=== PATIENT | female | born 1955 | race Caucasian/White ===

== ENCOUNTER 2019-12-30 08:46 | Emergency (ER) | payer MEDICARE, SELFPAY ==
--- NOTE | ~2019-12-30 | CT_ITS ---
EXAMINATION: CT brain wo con DATE: 12/30/2019 09:59 INDICATION: Fall, striking back of head. Occipital contusion and laceration. TECHNIQUE: Computed tomography (CT) of the head was performed without intravenous contrast. The mA wa s adjusted according to patient size. Iterative reconstruction technique was employed. Exam dose: 60 5.33 mGy-cm total exam DLP. COMPARISON: None FINDINGS: No intracranial mass lesion or hemorrhage or cerebrovascular accident is evident. Normal ve ntricular size. No midline shift or mass effect. No subdural or epidural hematoma. No fracture or bone destruction of the cranial vault. There is a small fluid level in the right maxillary sinus. There is some soft tissue thickening of th e ethmoid air cells, right greater than left. The left frontal and sphenoid sinuses are not developed . The paranasal sinuses are otherwise unremarkable. IMPRESSION: No skull fracture or acute intracranial finding Right maxillary sinus fluid level Reviewed, dictated and finalized at [facility]. Reviewed, dictated and finalized at [facility]. Y CONTROL OPERATOR
[2019-12-30 09:12] VITALS: BP 125/71; PULSE 73; RESP 16; TEMP 35.9; O2SAT 98
--- NOTE | 2019-12-30 09:29 | ECG_ITS ---
Measurements Intervals [place] Rate: 72 P: 69 [place]: 126 QRS: 57 QRSD: 89 T: 49 QT: 375 QTc: 411 Interpretive Statements SINUS RHYTHM NORMAL ECG Electronically Signed On 12-30-2019 11:26:32 INDEP[employer]ENT LIVING ADVISOR by Hugo Keller D.O.
--- NOTE | 2019-12-30 09:40 | ED.FALL ---
HPI - Fall General Chief Complaint: Fall Stated Complaint: passed out Source: patient and other (son) Mode of arrival: wheelchair Limitations: no limitations History of Present Illness HPI Narrative: Just after getting out of bed, while walking, pt. developed nausea, felt hot, just didn't feel right. She felt things close in around her then next remembers hearing a bang followed by waking up with blood on floor, having an occipital headache and continued nausea. Crawled to b.r. where she had dry heaves. No hx of chest pain, palpitations, SOB, sweating or syncope. She remembers incidents before and after her syncopal episode. No hx of sz disorder. Pt denies post syncope confusion, bit lip or cheek, incontinence. Has had cold symptoms x 2 days with nasal congestion and cough. Onset (ago): minute(s) (45) Fall from: standing Fall witnessed: no Place fall occurred: home Loss of consciousness: yes Length of LOC: minutes(s) (son estimates no more than 3 - 4 min . based on text and phone call) Symptoms prior to fall: lightheadedness Location of injury: head Severity: mild Quality: dull Associated symptoms (after fall): headache (#5/10) Related Data Home Medications Medication Instructions Recorded Confirmed aspirin 81 mg PO DAILY 12/30/19 12/30/19 omeprazole 20 mg PO DAILY 12/30/19 12/30/19 Allergies Allergy/AdvReac Type Severity Reaction Status Date / Time No Known Allergies Allergy Verified 12/30/19 09:23 Review of Systems Constitutional: Constitutional: Denies fever(s) Eyes: Comments: photophobia with migraine headache yesterday, none today. NO visual disturbances. ENT: Denies vertigo, Denies dizziness and Denies sore throat Cardiovascular: Cardiovascular: Denies chest pain, Denies rapid heart rate and Denies radiating jaw, neck or arm pain Comments: occasionally feels a skipped heart beat, none today. Respiratory: Respiratory: Denies chest congestion, Reports cough and Denies dyspnea Gastrointestinal: Gastrointestinal: Denies diarrhea Genitourinary: Genitourinary: Denies dysuria and Denies urinary incontinence Musculoskeletal: Musculoskeletal: Denies no additional musculoskeletal complaints and Reports back pain Comments: muscle soreness which she had before she fell, onset 1 - 2 days ago. Integumentary/Breasts: Skin/Breast: Denies rash Neurologic: Denies focal weakness and Denies numbness Endocrine: Endocrine: Reports polydipsia Hematologic/Lymphatic: Hematologic/Lymphatic: Denies easy bleeding Allergic/Immunologic: Allergic/Immunologic: Denies wheezing [facility] Past Medical History Medical History (Updated 12/30/19 @ 23:12 by Israel Philippe MD) GERD (gastroesophageal reflux disease) Migraine Surgical History Surgical History (Updated 12/30/19 @ 23:15 by Israel Philippe MD) Cataract extraction status of left eye Cataract extraction status of right eye Social History Social History (Updated 12/30/19 @ 09:57 by Israel Philippe MD) Smoking status: Never smoker Alcohol intake: never Gender identity (if verbalized by the patient): Female Exam Const: General: no acute distress Orientation/consciousness: patient oriented x3 HENMT: Head: normal to inspection, hematoma right occipital 1.5 cm and laceration Head images: 1. laceration Face and sinus: normal facial exam Mouth: Yes moist mucous membranes Eyes: Pupils: Equal, round and reactive pupils present EOM: EOMs intact bilaterally Neck: Neck: normal visual inspection and no lymphadenopathy Other: supple; no pain with movement; no spinous process tenderness. Chest: Chest palpation & inspection: normal inspection of the chest Resp: Effort & Inspection: normal respiratory effort Auscultation: clear to auscultation bilaterally Cardio: Rate: regular rate Rhythm: regular rhythm GI: Inspection: non-distended Back/Spine/Pelvis: Back: no CVA tenderness Skin: Rashes: no rashes Neuro: General: patient orient
[2019-12-30] MEDS: TETANUS,DIPHTHERIA,AC PERTUSSIS ADULT 0.5 ML (ADACEL) IM (10:03)
[2019-12-30] MEDS: SODIUM CHLORIDE 0.9% IV 1,000 ML 999 ML IV CONT (10:06)
[2019-12-30 10:07] LABS: Hematocrit 42.2 % (35.0-42.0); Hemoglobin 13.8 g/dL (11.7-13.8); Mean Corpuscular HGB Conc 32.7 g/dL (32.0-36.0); Mean Corpuscular Hemoglobin 28.3 pg (27.0-31.0); Mean Corpuscular Volume 86.7 fL (78.0-102.0); Mean Platelet Volume 10.4 fl (9.2-11.8); Platelet Count Result 269 K/mm3 (150-420); Red Blood Count 4.87 M/mm3 (4.20-5.40); Red Cell Distribution Width 13.4 % (11.6-14.4); White Blood Count 8.4 K/mm3 (4.8-10.8)
[2019-12-30 10:12] LABS: Appearance Urine Clear (Clear); Bilirubin Urine Negative (Negative); Color Urine Yellow (Yellow); Glucose Urine UA Negative (Negative); Ketones Urine 1+ (Negative); Leukocyte Esterase Ur 1+ (Negative); Nitrate Urine Negative (Negative); Protein Urine Trace (Negative); Urobilinogen Urine 0.2 mg/dL (0.2-1.0); pH Urine 7.5 (5.0-8.0)
[2019-12-30 10:17] LABS: Add Urine Microscopic? YES; Blood Urine Trace (Negative); RBC Urine 0-2 /hpf (0-2)
[2019-12-30 10:18] LABS: Bacteria Urine Trace /hpf; Squamous Epithelial Cell Urine Few /hpf (Few)
[2019-12-30 10:25] LABS: Influenza Control Valid (Valid)
[2019-12-30 10:26] LABS: Anion Gap 17.7 mmol/L (7-16); Blood Urea Nitrogen 10 mg/dL (7-18); Calcium 9.6 mg/dL (8.5-10.1); Carbon Dioxide 26 mmol/L (21-32); Chloride 101 mmol/L (98-108); Estimated CRCL calculation 50 ml/min; Estimated Glomerular Filt Rate 55; Glucose 109 mg/dL (70-99); Osmolality Calculated 292 mOsm/kg (285-295); Potassium 3.7 mmol/L (3.5-5.1); Sodium 141 mmol/L (136-145)
[2019-12-30 10:30] LABS: Troponin I < 0.02 ng/mL (0.00-0.056)
[2019-12-30 10:58] VITALS: BP 125/71; BP 136/78; PULSE 83; PULSE 92
[2019-12-30 11:33] VITALS: BP 142/80; PULSE 80; O2SAT 99
--- NOTE | 2020-01-05 14:06 | PC.NURSE ---
N.SALINE 1000 ML INFUSSION COMPLETED @ 1055
== END 2019-12-30 11:41 | disposition home or self-care (01) ==
PROVIDERS: Emergency Provider Family Medicine
DX: S01.01XA Laceration without foreign body of scalp, initial encounter (principal); R55 Syncope and collapse; K21.9 Gastro-esophageal reflux disease without esophagitis; W18.30XA Fall on same level, unspecified, initial encounter
CPT/HCPCS: 12001; 36415; 70450; 80048; 81001; 84484; 85027; 87804; 90471; 90715; 93005; 96360; 99282; 99284; J7030

== ENCOUNTER 2025-03-26 12:00 | Outpatient (CLI) | payer MEDICARE, SELFPAY ==
[2025-03-26 12:26] LABS: Add Urine Microscopic? YES; Appearance Urine Clear (Clear); Bilirubin Urine Negative (Negative); Blood Urine Trace-intact (Negative); Color Urine Light Yellow (Yellow); Glucose Urine UA Negative (Negative); Ketones Urine Negative (Negative); Leukocyte Esterase Ur Trace LEU/UL (Negative); Nitrate Urine Negative (Negative); Protein Urine Negative (Negative); Urobilinogen Urine 0.2 mg/dL (0.2-1.0); pH Urine 5.5 (5.0-8.0)
--- OUTSIDE RECORDS SUMMARY | 2025-03-26 12:27 | XMS_ITS | Continuity of Care Document ---
Author Organization [facility] Address [address] [place] [address] Phone Care Team Providers Care Manual Plate Filler Name Role Phone Yuri Sevilla MD Unavailable Unavailable Allergies, Adverse Reactions, Alerts Substance Reaction Status Criticality No Known Allergies Active No Inform ation Medications Medication Instructions Dosage Effective Dates (start - stop) Status Comments omeprazole 20 mg capsule,delayed release take 1 capsule by oral route every day before a meal 20 MG - Active B-12 Compliance 1,000 mcg/mL injection kit inject 1 milliliter by intramuscular route every month - Active multivitamin tablet take 1 tablet by ora l route every day with food - Active Calcium 600 600 mg (1,500 mg) tablet - Active Aspirin Low Dose 81 mg tablet,delayed release take 1 tablet by oral route every day 81 MG - Active Procedures Procedure Date No Charge Refraction Visual Field Examination(s) Corneal Pachymetry SCODI, Posterior Segment Office/outpatient Visit, [facility] Advance Directives Directive Yes / No Effective Date File Name No Information Encounters Encounter Description Practice Location Reason(s) For Visit Diagnoses Date Provider Providers Copied on Encounter Office/outpa tient Visit, [facility], [address] [place] [address] [address], [place], [place], [id number], [place] tel:[phone] [place] Professional Glaucoma evaluation (chief complaint) Abnormally thick cornea determined by ultrasound pachymetryCo mbined forms of age-related cataract of both eyesOcular hypertension , bilateral May-2 3-201 7 Roel Welch. [address], [place], [place], [id number], [place]. tel:[phone] Referring Provider: Pattie Morris OD, [facility] [address] [facility], [place], [address]. tel:[phone] [facility], [address], [place], [place], [id number], [place] tel:[phone] [place] Professional No Information Chaya Melendez. [address], [address], [place], [place], [id number], [place]. tel:[phone] Family History Family Member Type Diagnosis Age At Onset No Information Payers Payer name Insurance type Covered republican ID Authoriza harrison(s) RUST [id number] Social History Type Description Quantity Date Captured Comments Alcohol Use Details Caffeine Use Details coffee 3 cups per day Tobacco Use Status No Information Smoking Status Never smoker Non-Smoking Tobacco Use Details : No Details Available : No Details Available Sex Female Chief Complaint And Reason For Visit From encounter dated '04/12/2017 09:30'. Glaucoma evaluation (chief complaint). Description: The 62 year old female presents for Glaucoma evaluation in the right eye and left eye. Pt reffered by Dr. Pattie Morris at [facility] for Glc eval. Pt reports she has no ocular Hx, but does have a Hx of migraines. Pt reports no family Hx of glaucoma. Pt reports no pain, irritation, or discomfort today OU. Pt reports she doesn't use any gtts. Pt reports no flashes of light. Pt reports she does have floaters, OU, x many yrs, with no change. Pt reports no change in VA, OU. Reason For Referral Reason For Referral No Information History Of Present Illness Encounter Date Complaint History Of Prese nt Illness Glaucoma evaluation The 62 year old female presents for Glaucoma evaluation in the right eye and left eye. Pt reffered by Dr. Pattie Morris at [facility] for Glc eval. Pt reports she has no ocular Hx, but does have a Hx of migraines. Pt reports no family Hx of glaucoma. Pt reports no pain, irritation, or discomfort today OU. Pt reports she doesn't use any gtts. Pt reports no flashes of light. Pt reports she does have floaters, OU, x many yrs, with no change. Pt reports no change in VA, OU. Functional Status Date Functional Assessmen t No Information Instructions Date Instruction Additional Infor ernestine Impression/Plan - Ca taract OU:- Visually significant cataract OD>OS.- Patient recently got new glasses.- Patient doing well with her vision.- Patient wishes to wait on CE at this time.Ocular Hypertension OU:- Baseline HVF and OCT are normal OU.- IOP was elevated at outside office.- IOP within normal limits today.- Slightly thick pachymetry OS>OD.- There is no known family history of glaucoma.- Explained her risk for developing glaucoma is low.- Observation is recommended at this time.- Recommend patient return in 1 year for DFE and OCT ON or sooner with problems. 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
--- OUTSIDE RECORDS SUMMARY | 2025-03-26 12:27 | XMS_ITS | Encounter Summary ---
Author Organization [facility] Address [facility] [place] [address] Care Team Providers Care Forensic Manager Name Role Phone William Silverman DO Primary Care Provider [phone] Encounter Details Date Type Department Care Team (Late st Contact Info) Description 04/28/2019 Abstract [facility] CONVERSION [address] [place] [address] , Generic Conversion, Social History Tobacco Use Types Packs/Day Years Used Date Smoking Tobacco: Never Assessed Comments Unknown Sex and Gender Information Value Date Recorded Sex Assigned at Female 03/03/2025 10:14 AM CDT Legal Sex Female 5:51 PM [employer]OX [employer]ER Gender Identity Not on file Sexual Orientation Not on file documented as of this encounter Plan of Treatment Not on file documented as of this encounter Visit Diagnoses Not on filedocumented in this encounter Additional Health Concerns Infection Onset Date Last Indicated Resolved Time COVID-19 Rule Out 03/03/2025 03/03/2025 03/03/2025 10:14 AM CDT Respiratory Rule-Out 03/03/2025 03/03/2025 025 10:14 AM CDT documented as of this encounter Care Teams Forensic Manager Relationship Specialty Start Date End Date William Silverman DO [address] [place] [phone] PCP - General FAMILY PRACTICE 03/03/25 documented as of this encounter
--- OUTSIDE RECORDS SUMMARY | 2025-03-26 12:27 | XMS_ITS | Clinical Summary ---
Author Organization [facility] Address [facility] [place] [address] Care Team Providers Care Agent Producer Name Role Phone William Silverman Lluvia NOE Primary Care Provider [phone] Allergies No known active allergies Medications No known medications Active Problems No known active problems Encounters Date Type Department Care Team Description 03/03/2025 9:28 AM CDT - 03/03/2025 1:15 PM CDT [facility] [address] [facility] [place] [address] Alyce Bello DO Chest Pain Discharge Disposition: Home or Self Care (Routine Discharge) 03/03/2025 Travel from Last 3 Months Social History Tobacco Use Types Packs/Day Years Used Date Smoking Tobacco: Never Smokeless Tobacco: Never Tobacco Cessation:Counseling Given: Not Answered Alcohol Use Standard Drinks/Week Comments Never 0 (1 standard drink = 0.6 oz pur e alcohol) Comments No Sex and Gender Information Value Date Recorded Sex Assigned at Female 03/03/2025 10:14 AM CDT 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 Gender Identity Not on file Sexual Orientation Not on file Last Filed Vital Signs Vital Sign Reading Time Taken Comments Blood Pressure 121/85 03/03/2025 1:01 PM CDT Pulse 86 03/03/2025 1:01 PM CDT Temperature 37.2 C (98.9 F) 03/03/2025 9:48 AM CDT Respiratory Rate 18 03/03/2025 12:30 PM CDT Oxygen Saturation 100% 03/03/2025 1:01 PM CDT Inhaled Oxygen Concentration - - Weight 74.8 kg (165 lb) 03/03/2025 9:48 AM CDT Height 162.6 cm (5' 4 ) 03/03/2025 9:48 AM CDT Body Mass Index 28.32 03/03/2025 9:48 AM CDT Plan of Treatment Health Maintenance Due Date Last Done Comments Colorectal Cancer Screening Colonoscopy (10 Years) 1955 Hepatitis C 1971 Mammogram Screening 1993 Zoster Vaccines (1 of 2) 2003 Annual Medicare Wellness Visit 2018 Dexa Scan (General) 2018 Pneumococcal Vaccine: 50+ Years (2 of 2 - PPSV23) 09/25/2021 09/25/2020 COVID-19 Vaccine (3 - 2023-2 5 season) 2024 01/14/2021, 12/19/2020 RSV Immunization or 60+ Years (1 - 1-dose 75+ series) 01/27/2028 DTaP, Tdap and Td Vaccines ( 2 - Td or Tdap) 12/30/2029 12/30/2019 Meningococcal B Vaccine Aged Out No l onger eligible based on patient's age to complete this topic Meningococcal Vaccine Aged Out No frandy taz eligible based on patient's age to complete this topic RSV Immunizations Under 20 Months Aged Out No longer eligible b ased on patient's age to complete this topic Procedures Procedure Name Priority Date/Time Associated Diagnosis Comments TROPONIN, QUANT STAT 03/03/2025 11:37 AM CDT XR CHEST PA+LAT STAT 03/03/2025 10:38 AM CDT INFLUENZA A & B STAT 03/03/2025 9:46 AM CDT CORONAVIRUS (COVID-19) ANTIGEN STAT 03/03/2025 9:46 AM CDT LACTIC ACID W REFLEX (SEPSIS) STAT 03/03/2025 9:43 AM CDT TROPONIN, QUANT STAT 03/03/2025 9:43 AM CDT PRO-BRAIN NATRIURETIC PEPTIDE STAT 03/03/2025 9:43 AM CDT COMPREHENSIVE METABOLIC PANEL STAT 03/03/2025 9:43 AM CDT CBC W/DIFF AUTOMATED STAT 03/03/2025 9:43 AM CDT ECG 12-LEAD Routine 03/03/2025 9:32 AM CDT from Last 3 Months Results * TROPONIN, QUANT (03/03/2025 11:37 AM CDT) Only the most recent of2 resultswithin the time period is included. TROPONIN I HIGH SENSITIVITY 4 0 - 51 ng/L 03/03/2025 12:01 PM CDT [facility] 03/03/2025 11:3 7 AM CDT Alyce Bello DO LABORATORY Final Result Performing Organization Address City/State/[facility] Co de Phone Number [facility] [address] [place] [address], * XR CHEST PA+LAT (03/03/2025 10:38 AM CDT) Anatomical Region Laterality Modality Chest Radiographic Chanelle ging 03/03/2025 10:3 8 AM CDT Impressions 03/03/2025 10:38 AM CDT IMPRESSION: No acute findings Ordered By: ALYCE BELLO Interpreted By: Yonatan Olivier MD, 03/03/2025 10:38 AM Narrative 03/03/2025 10:38 AM CDT [address] [place] [address] 2 VIEWS OF THE CHEST Clinical history: Chest pain Comparison: None 2 views of the chest demonstrate the cardiac silhouette to be normal in size and appearance. The pulmonary vessels appear normal. The Lungs are clear. No consolidations or effusions are seen. Procedure Note Yonatan Olivier MD - 03/03/[address] [place] [address] 2 VIEWS OF THE CHEST Clinical history: Chest pain Comparison: None 2 views of the chest demonstrate the cardiac silhouette to be normal insize and appearance. The pulmonary vessels appear normal. The Lungs areclear. No consolidations or effusions are seen. IMPRESSION: No acute findings Ordered By: ALYCE BELLO Interpreted By: Yonatan Olivier MD, 03/03/2025 10:38 AM Alyce Bello DO GENERAL IMAGING Final Result * CORONAVIRUS (COVID-19) ANTIGEN (03/03/2025 9:46 AM CDT) CORONAVIRUS ANTIGEN IA NEGATIVE NEGATIVE 03/03/2025 10:14 AM CDT [facility] Comment: NEGATIVE RESULTS DO NOT RULE OUT SARS-COV-2 INFECTION AND SHOULD NOT BE USED THE SOLE BASIS FOR TREATMENT OR PATIENT MANAGEMENT DECISIONS, INCLUDING INFECTION CONTROL DECISIONS. NEGATIVE RESULTS SHOULD BE CONSIDERED IN THE CONTEXT OF A PATIENT'S RECENT EXPOSURES, HISTORY AND THE PRESENCE OF CLINICAL SIGNS AND SYMPTOMS CONSISTENT WITH COVID 19. THIS TEST HAS BEEN AUTHORIZED BY THE FDA UNDER AN EMERGENCY USE AUTHORIZATION (EUA) FOR USE BY AUTHORIZED LABORATORIES. SPECIMEN TYPE NASAL 03/03/2025 9:46 AM CDT [facility] NASAL NASAL STRUCTURE / Unknown 03/03/2025 9:46 AM CDT us Alyce Bello DO MICROBIOLOGY - GENERAL ORDERABLE S Final Result [facility] [place] [address], * INFLUENZA A & B (03/03/2025 9:46 AM CDT) SPECIMEN TYPE (INFLUENZA) NASAL 03/03/2025 9:46 AM CDT [facility] INFLUENZA A NEGATIVE NEGATIVE 03/03/2025 10:14 AM CDT [facility] INFLUENZA B NEGATIVE NEGATIVE 03/03/2025 10:14 AM CDT [facility] Comment: A NEGATIVE RESULT DOES NOT EXCLUDE INFLUENZA VIRUS INFECTION. IF INFLUENZA IS CIRCULATING IN YOUR COMMUNITY, A DIAGNOSIS OF INFLUENZA SHOULD BE CONSIDERED BASED ON A PATIENT'S CLINICAL PRESENTATION AND EMPIRIC ANTIVIRAL TREATMENT SHOULD BE CONSIDERED IF INDICATED. NASAL STRUCTURE / Unknown 03/03/2025 9:46 AM CDT us Alyce Bello DO MICROBIOLOGY - GENERAL ORDERABLE S Final Result Performing Organization Address City/[facility]/ZIP Co de Phone Number [facility] [address] [place] [address], * LACTIC ACID W REFLEX (SEPSIS) (03/03/2025 9:43 AM CDT) LACTIC ACID VENOUS 0.8 0.4 - 2.0 MMOL/L 03/03/2025 10:21 AM CDT [facility] 03/03/2025 9:43 AM CDT us Alyce Bello DO LABORATORY Final Result Performing Organization Address [facility]/ZIP Co de Phone Number [facility] [address] [place] [address], * (ABNORMAL) PRO-BRAIN NATRIURETIC PEPTIDE (03/03/2025 9:43 AM CDT) PRO-B TYPE NATRIURETIC PEPTIDE 381(H) <125 PG/ML 03/03/2025 10:25 AM CDT [facility] Comment: CUT POINTS ESTABLISHED BY INTERNATIONAL COLLABORATIVE ON NT PROBNP (ICON) STUDY (2006). AGE INDEPENDENT: <300 PG/ML HAS A 99% NEGATIVE PREDICTIVE VALUE FOR EXCLUDING ACUTE CHF <50 YEARS: >450 PG/ML IS CONSISTENT WITH ACUTE CHF 50-75 YEARS: >900 PG/ML IS CONSISTENT WITH ACUTE CHF >75 YEARS: >1800 PG/ML IS CONSISTENT WITH ACUTE CHF IN PATIENTS WITH RENAL INSUFFICIENCY (GFR <60), >1200 PG/ML YIELDS A DIAGNOSTIC SENSITIVITY AND SPECIFICITY OF 89% AND 72% FOR ACUTE CHF. 03/03/2025 9:43 AM CDT us Alyce Bello DO LABORATORY Final Result [facility] [address] [place] [address], * (ABNORMAL) COMPREHENSIVE METABOLIC PANEL (03/03/2025 9:43 AM CDT) SODIUM S/P/B 138 136 - 145 MMOL/L 03/03/2025 10:25 AM CDT [facility] POTASSIUM S/P/B 3.8 3.5 - 5.1 MMOL/L 03/03/2025 10:25 AM CDT [facility] CHLORIDE S/P/B 102 98 - 107 MMOL/L 03/03/2025 10:25 AM CDT [facility] CO2 27.8 21.0 - 32.0 MMOL/L 03/03/2025 10:25 AM CDT [facility] GLUCOSE 114(H) 70 - 99 MG/DL 03/03/2025 10:25 AM CDT [facility] Comment: FASTING GLUCOSE 100 TO 125 MG/DL IS CONSISTENT WITH IMPAIRED FASTING GLUCOSE. FASTING GLUCOSE >125 MG/DL IS CONSISTENT WITH DIABETES. RANDOM GLUCOSE >200 MG/DL WITH HYPERGLYCEMIC SYMPTOMS IS CONSISTENT WITH DIABETES. PER ADA GUIDELINES BUN 8 6 - 24 MG/DL 03/03/2025 10:25 AM CDT [facility] CREATININE S/P/B 0.68 0.55 - 1.02 MG/DL 03/03/2025 10:25 AM CDT [facility] CALCIUM S/P/B 9.0 8.4 - 10.5 MG/DL 03/03/2025 10:25 AM CDT [facility] BILIRUBIN TOTAL S/P/B 1.0 0.2 - 1.0 MG/DL 03/03/2025 10:25 AM CDT [facility] Comment: THIS ASSAY IS NOT RECOMMENDED FOR PATIENTS UNDERGOING TREATMENT WITH ELTROMBOPAG DUE TO THE POTENTIAL FOR FALSELY ELEVATED RESULTS. ALKALINE PHOSPHATASE S/P/B 100 55 - 142 U/L 03/03/2025 10:25 AM CDT [facility] AST 19 15 - 37 U/L 03/03/2025 10:25 AM CDT [facility] ALT 28 14 - 59 U/L 03/03/2025 10:25 AM CDT [facility] TOTAL PROTEIN S/P/B 7.4 6.4 - 8.2 G/DL 03/03/2025 10:25 AM CDT [facility] ALBUMIN S/P/B 3.8 3.4 - 5.0 G/DL 03/03/2025 10:25 AM T [facility] ANION GAP 8.2 5.0 - 15.0 MMOL/L 03/03/2025 10:25 AM T [facility] OSMOLALITY (CALC) 285 MOSM/KG 025 10:25 AM T [facility] Comment:REFERENCE RANGE NOT ESTABLISHED GFR ESTIMATE >90 >89 ML/MIN/1. 73 M2 03/03/2025 10:25 AM T [facility] GFR NOTES GFR REFERENCE S: 03/03/2025 10:25 AM T [facility] Comment: THE ESTIMATED GFR IS CALCULATED USING THE 2020 CKD-EPI EQUATION. THE FOLLOWING CATEGORIES FOR GRADING RENAL FUNCTION ARE RECOMMENDED BY THE INTERNATIONAL SOCIETY OF NEPHROLOGY (KDIGO 2012 CLINICAL PRACTICE GUIDELINE). G1,NORMAL OR HIGH: >89 ml/min/1.73 m2 G2,MILDLY DECREASED: 60-89 ml/min/1.73 m2 G3A,MILDLY TO MODERATELY DECREASED: 45-59 ml/min/1.73 m2 G3B,MODERATELY TO SEVERELY DECREASED: 30-44 ml/min/1.73 m2 G4,SEVERELY DECREASED: 15-29 ml/min/1.73 m2 G5,KIDNEY FAILURE: <15 ml/min/1.73 m2 03/03/2025 9:43 AM CDT us Alyce Bello DO LABORATORY Final Result [facility] [address] [place] [address], * (ABNORMAL) CBC W/DIFF AUTOMATED (03/03/2025 9:43 AM CDT) WBC 5.90 4.00 - 10.80 x10'3/uL 03/03/2025 9:53 AM CDT [facility] RBC 4.55 4.10 - 5.40 x10'6/uL 03/03/2025 9:53 AM CDT [facility] HGB 12.4 12.0 - 16.0 G/DL 03/03/2025 9:53 AM CDT [facility] HCT 38.6 36.0 - 47.0 % 03/03/2025 9:53 AM CDT [facility] MCV 84.8 78.0 - 100.0 FL 03/03/2025 9:53 AM CDT [facility] MCH 27.3 27.0 - 31.0 PG 03/03/2025 9:53 AM CDT [facility] MCHC 32.1(L) 33.0 - 36.0 G/DL 03/03/2025 9:53 AM CDT [facility] RDW 13.9 11.5 - 14.5 % 03/03/2025 9:53 AM CDT [facility] PLT 243 150 - 350 x10'3/uL 03/03/2025 9:53 AM CDT [facility] MPV 10.0 7.4 - 10.4 FL 03/03/2025 9:53 AM CDT [facility] CBC COMMENT NORMAL REFERENCE RANGE NOT ESTABLISHED FOR THE PROPORTIONAL LEUKOCYTE DIFFERENTIAL. 03/03/2025 9:53 AM CDT [facility] NEUTROPHILS % 80.0 % 03/03/2025 9:53 AM CDT [facility] LYMPHOCYTES % 12.0 % 03/03/2025 9:53 AM CDT [facility] MONOCYTES % 5.3 % 03/03/2025 9:53 AM CDT [facility] EOSINOPHILS % 2.2 % 03/03/2025 9:53 AM CDT [facility] BASOPHILS % 0.3 % 03/03/2025 9:53 AM CDT [facility] IMMATURE GRANS % 0.2 % 03/03/20 9:53 AM CDT [facility] NRBC % 0.0 % 03/03/2025 9:53 AM CDT [facility] ABS. NEUTROPHILS 4.72 1.60 - 8.30 x10'3/uL 03/03/2025 9:53 AM CDT [facility] ABS. LYMPHOCYTES 0.71(L) 0.80 - 4.70 x10'3/uL 03/03/2025 9:53 AM CDT [facility] ABS. MONOCYTES 0.31 0.00 - 1.50 x10'3/uL 03/03/2025 9:53 AM CDT [facility] ABS. EOSINOPHILS 0.13 0.00 - 0.40 x10'3/uL 03/03/2025 9:53 AM CDT [facility] ABS. BASOPHILS 0.02 0.00 - 0.20 x10'3/uL 03/03/2025 9:53 AM CDT [facility] ABS. IMMATURE GRANULOCYTES 0.01 0.00 - 0.03 x10'3/uL 03/03/2025 9:53 AM CDT [facility] ABS. NUCLEATED RBC'S 0.00 0.00 - 0.01 x10'3/uL 03/03/2025 9:53 AM CDT [facility] 03/03/2025 9:43 AM CDT us Alyce Bello DO LABORATORY Final Result [facility] [address] [place] [address], * ECG 12 lead (03/03/2025 9:32 AM CDT) 03/03/2025 9:32 AM CDT Narrative [facility] - 03/03/2025 3:[address] PM [address] [place] [address] Test Date: 2025-03-03 Pat Name: KAELA BENITO Department: 3 Room: EXAM 101 Gender: Female [place]: : 1955 Requested By: ALYCE BELLO Order Number: [id number] Reading MD: Roge Gomes Measurements Intervals [place] Rate: 87 P: 61 IN: 159 QRS: 16 QRSD: 94 T: 29 QT: 351 QTc: 423 Interpretive Statements SINUS RHYTHM LOW QRS VOLTAGE IN PRECORDIAL LEADS Procedure Note Roge Gomes MD - 03/03/[address] [place] [address] Test Date: 2025-03-03 Pat Name: KAELA BENITO Department: 3 Room: EXAM 101 Gender: Female [place]: : 1955 Requested By: ALYCE BELLO Order Number: [id number] Reading MD: Roge Gomes Measurements Intervals [place] Rate: 87 P: 61 IN: 159 QRS: 16 QRSD: 94 T: 29 QT: 351 QTc: 423 Interpretive Statements SINUS RHYTHM LOW QRS VOLTAGE IN PRECORDIAL LEADS us Alyce Bello DO ECG ORDERABLES Final Result [facility] [place] [facility] from Last 3 Months Insurance MEDICARE GENERIC - COMMERCIAL Care Teams Agent Producer Relationship Specialty Start Date End Date Wililam Silverman DO [address] [place] [phone] PCP - General FAMILY PRACTICE 03/03/25
[2025-03-26 12:30] LABS: Bacteria Urine Rare /hpf; RBC Urine 0-2 /hpf (0-2); Squamous Epithelial Cell Urine Rare /hpf (Few); WBC Urine 0-3 /hpf (0-3)
[2025-03-26 13:25] LABS: CRP 0.5 mg/dL (0.0-0.9); Cholesterol 275 mg/dL (0-200); HDL Direct 75 mg/dL (40-60); LDL Cholesterol Calculated 166 mg/dL (<130); Magnesium 2.4 mg/dL (1.8-2.4); NT Pro B Type Natriuretic Pept 87 pg/mL (0-125); Thyroid Stimulating Hormone 0.83 uIU/mL (0.36-3.74); Triglycerides 169 mg/dL (0-150)
== END 2025-03-26 12:01 | disposition home or self-care (01) ==
LOC: CHSLAB 12:07
DX: I50.43 Acute on chronic combined systolic (congestive) and diastolic (congestive) heart failure (principal); I24.81 Acute coronary microvascular dysfunction
CPT/HCPCS: 36415; 80061; 81001; 83735; 83880; 84443; 86140